=== PATIENT | female | born 1935 | race African-American/Black ===

== ENCOUNTER 2016-12-08 08:27 | Day surgery (SDC) | payer OTHER ==
[2016-12-07 10:15] VITALS: BMI 30.9
[2016-12-08] MEDS ORDERED: PROPOFOL 20 ML ONE ×2 (09:28)
[2016-12-08] MEDS ORDERED: LIDOCAINE HCL/PF 2% SDV 5ML VIAL ONE (10:08)
[2016-12-08 11:06] VITALS: TEMP 97.4
[2016-12-08 11:16] VITALS: BP 146/78; PULSE 86
--- NOTE | 2016-12-10 11:52 | PATH ---
Surgical Pathology Report Patient Name: LINDSEY SHARMA [facility]. Rec. #: [id number] /Age/Gender: 1935 (Age: 81) / F Account: [id number] Location: Taken: 12/08/2016 Received: 12/08/2016 Reported: 12/10/2016 Physicians: Harry Gray M.D. Specimen(s) Received A: BX DUODENUM B: BX ANTRUM C: BX RIGHT COLON Clinical History GERD, rule out colon cancer Gastritis, rule out celiac disease, colonic polyp Final Diagnosis A. DUODENUM, BIOPSY: DUODENAL MUCOSA WITH NO PATHOLOGIC CHANGES. NO HISTOLOGIC EVIDENCE OF GLUTEN SENSITIVE ENTEROPATHY (CELIAC SPRUE) IDENTIFIED. B. STOMACH, ANTRUM, BIOPSY: MILD CHRONIC GASTRITIS. IMMUNOSTAIN FOR H. PYLORI IS NEGATIVE. C. COLON, RIGHT, BIOPSY: SESSILE SERRATED POLYP. Comment: Sessile serrated polyps are not dysplastic (adenomatous). They share morphologic features with hyperplastic polyps and, in the past, have been referred to as such. However, recent studies indicate that they harbor BRAF mutations and may represent neoplastic precursors to a subset of sporadic, microsatellite unstable colon cancers. They are generally treated and followed similar to colonic adenomas. SABINE Springer and George, [facility] 2010, 139(5):5298-1448. Electronically Signed Shad Culp M.D. Gross Description A. Received in formalin, labeled "duodenum" are 2 zapata, irregular portions of soft tissue measuring 0.1 and 0.4 cm. in greatest dimension. The specimens are submitted in toto in one cassette. B. Received in formalin, labeled "antrum" are 2 zapata, irregular portions of soft tissue averaging 0.4 cm. in greatest dimension. The specimens are submitted in toto in one cassette. C. Received in formalin, labeled "right colon" is a zapata, irregular portion of soft tissue measuring 0.1 cm. in greatest dimension. The specimen is submitted in toto in one cassette. 12/09/201612/09/2016
== END 2016-12-08 11:25 | disposition home or self-care (01) ==
LOC: FASU-ENDO 08:27
PROVIDERS: ATTEND Internal Medicine Gastroenterology
PROC: 0DBL8ZX Excision of Transverse Colon, Via Natural or Artificial Opening Endoscopic, Diagnostic (ICD-10-PCS; principal; 2016-12-08 10:15)
PROC: 0DB98ZX Excision of Duodenum, Via Natural or Artificial Opening Endoscopic, Diagnostic (ICD-10-PCS; 2016-12-08 10:15)
PROC: 0DB68ZX Excision of Stomach, Via Natural or Artificial Opening Endoscopic, Diagnostic (ICD-10-PCS; 2016-12-08 10:15)
DX: Z12.11 Encounter for screening for malignant neoplasm of colon (principal); D12.2 Benign neoplasm of ascending colon; K29.50 Unspecified chronic gastritis without bleeding
CPT/HCPCS: 88305-TC; 88342-TC

== ENCOUNTER 2020-10-18 12:13 | Emergency (ER) | payer OTHER ==
[2020-10-18] MEDS ORDERED: ACETAMINOPHEN 500 MG TABLET (FP) PO ONE (13:04)
[2020-10-18 13:28] VITALS: BP 143/63; PULSE 79; TEMP 97.6; BMI 31.5
== END 2020-10-18 16:02 | disposition home or self-care (01) ==
LOC: JER 12:13
DX: S52.612A Displaced fracture of left ulna styloid process, initial encounter for closed fracture (principal); S52.502A Unspecified fracture of the lower end of left radius, initial encounter for closed fracture
CPT/HCPCS: 73090-TC-LT-FY; 73110-TC-LT-FY; 73130-TC-LT-FY; 99284-25